=== PATIENT | male | born 1940 | race Native Hawaiian/Other Pacific Islander ===

== ENCOUNTER → 2022-03-10 | Emergency (ER) | payer OTHER ==
[~2022-03-10] VITALS: Ht 193 cm; Wt 105.9 kg
[~2022-03-10] MED LIST: ALLO100T22 PO; APIX1TAB PO; DONEPEZIL HYDROC5 M1 PO; EUTHYROX25 MCG PO; FINASTERIDE5 MG PO; GABA300C2 PO; LISI5TAB10 PO; METO-837 PO; PANTOPRAZOLE 40MG TA PO; TAMS0.4C PO; TRAZ100T PO
[2022-03-10 17:05] VITALS: BP 129/48; TEMP 97.9
[2022-03-10 17:23] LABS: PLATELET COUNT 181 K/uL (142-355)
[2022-03-10 17:27] LABS: POTASSIUM 4.7 mmol/L (3.6-5.2)
== END ==
LOC: ED 17:04
PROVIDERS: Emergency Medicine
DX: F03.911 Unspecified dementia, unspecified severity, with agitation (principal); D64.89 Other specified anemias; N18.4 Chronic kidney disease, stage 4 (severe); U07.1 COVID-19; Z04.6 Encounter for general psychiatric examination, requested by authority
CPT/HCPCS: 80053; 85027; 87635; 93005; 99283; U0003